=== PATIENT | male | born 1935 | race Two or more races ===

== ENCOUNTER 2018-12-16 09:06 | Inpatient (IN) | payer MEDICARE, OTHER ==
[~2018-12-16] VITALS: Ht 175.3 cm; Wt 68.1 kg
[~2018-12-16 09:06] MED LIST: ASPI-1182 PO; CARV6.2579 PO; CLOP75TA3 PO; GEMF600T5 PO; ISOS60TA4 PO; LEVO100 PO; ROSU10TA22 PO; [UNRECOGNIZED DRUG - CODE] PO
[2018-12-16] MEDS ORDERED: OMEP20 PO (09:17)
[2018-12-16] MEDS ORDERED: LOSA25TA2 PO (09:17)
[2018-12-16 09:20] LABS: GLUCOSE,POINT OF CARE 110 MG/DL (70-110)
[2018-12-16] MEDS ORDERED: SODIUM CHLORIDE 0.9% 1,000 ML IV ONE (10:15)
[2018-12-16 10:38] LABS: BASOPHILS % (AUTO) 0.6 % (0.0-2.0); EOSINOPHILS % (AUTO) 3.2 % (1.0-6.0); HEMATOCRIT 39.6 % (41-53); HEMOGLOBIN 13.5 g/dL (13.5-17.5); LYMPHOCYTES # (AUTO) 1.6 K/uL (1.0-4.8); LYMPHOCYTES % (AUTO) 12.7 % (22.0-44.0); MEAN CORPUSCULAR HEMOGLOBIN 31.3 pg (26.0-34.0); MEAN CORPUSCULAR HGB CONC 34.2 G/dL (31.0-37.0); MEAN CORPUSCULAR VOLUME 92 fL (80-100); MONOCYTES # (AUTO) 0.9 K/uL (0.1-1.0); MONOCYTES % (AUTO) 7.4 % (2.0-9.0); NEUTROPHILS # (AUTO) 9.3 K/uL (1.8-7.7); NEUTROPHILS % (AUTO) 76.1 % (40.0-70.0); PLATELET COUNT (AUTO) 363 K/uL (150-450); RED BLOOD CELL COUNT(AUTO) 4.32 MIL/uL (4.50-5.90); RED CELL DISTRIBUTION WIDTH 14.1 % (11.5-14.5)
[2018-12-16 10:49] LABS: CALCIUM, TOTAL 9.5 mg/dL (8.8-10.5); CREATININE 1.95 mg/dL (0.60-1.30); POTASSIUM 4.3 mmol/L (3.5-5.1)
[2018-12-16 10:51] LABS: PROTHROMBIN TIME 10.6 SEC (9.4-11.6)
[2018-12-16 10:55] LABS: ALBUMIN 2.8 g/dL (3.4-5.0); BILIRUBIN,TOTAL 0.5 mg/dL (0.1-1.0); TOTAL PROTEIN, SERUM 8.2 g/dL (6.4-8.2)
[2018-12-16 10:57] LABS: LACTIC ACID 1.7 mmol/L (0.4-2.0)
[2018-12-16 11:22] LABS: APPEARANCE,URINE CLEAR (CLEAR); BILIRUBIN,URINE NEGATIVE (NEGATIVE); GLUCOSE, URINE (UA) NEGATIVE (NEGATIVE); KETONES,URINE NEGATIVE (NEGATIVE); LEUKOCYTE ESTERASE ,URINE NEGATIVE (NEGATIVE); NITRATE,URINE NEGATIVE (NEGATIVE); OCCULT BLOOD,URINE NEGATIVE (NEGATIVE); PH,URINE 6.5 (5.0-8.0); PROTEIN,URINE POS 1+ (NEGATIVE); UROBILINOGEN,URINE 0.2 mg/dL (<=1.0)
[2018-12-16 11:36] LABS: BACTERIA,URINE None Seen /HPF (None Seen); RBC,URINE None Seen /HPF (0-2); SQUAMOUS EPITHELIAL CELL,UR Rare /LPF (None Seen); WBC,URINE None Seen /HPF (0-5)
[2018-12-16] MEDS ORDERED: 0.9% SODIUM CHLORIDE 10 ML SYRINGE IVP PRN (12:30)
[2018-12-16] MEDS ORDERED: AZITHROMYCIN 500 MG/NS 250 ML IV ONE (12:30)
[2018-12-16] MEDS ORDERED: CefTRIAXone 1 GM/DEXTROSE 50 ML IV ONE (12:30)
[2018-12-16] MEDS ORDERED: ONDANSETRON HCL 4 MG/2 ML VIAL IVP PRN (12:30)
[2018-12-16] MEDS ORDERED: ACETAMINOPHEN 325 MG TABLET PO PRN ×2 (12:30→13:00)
[2018-12-16] MEDS ORDERED: LEVO75 PO (12:44)
[2018-12-16] MEDS ORDERED: BISACODYL 10 MG RECTAL RECTAL SUPPOSITORY PR PRN (13:00)
[2018-12-16 16:37] VITALS: BP 116/68
[2018-12-16 20:04] VITALS: BP 100/58
[2018-12-16] MEDS: DOCUSATE SODIUM 100 MG CAPSULE PO SCH (20:09)
[2018-12-16] MEDS: ATORVASTATIN CALCIUM 20 MG TABLET PO SCH (20:09)
[2018-12-16] MEDS: CARVEDILOL 6.25 MG TABLET PO SCH (20:09)
[2018-12-16] MEDS ORDERED: INFLUENZA VIRUS VACCINE QVS 2019-20 (3YR+)/PF 60 MCG/0.5 ML SYRINGE IM ONE (20:15)
[2018-12-16] MEDS ORDERED: PNEUMOCOCCAL VACCINE POLYVALENT 0.5 ML VIAL [PPSV23] IM ONE (20:15)
[2018-12-16 23:49] VITALS: BP 108/60
[2018-12-17 05:18] VITALS: BP 109/58
[2018-12-17 05:42] LABS: GLUCOMETER DEV NAME(LOC) 5N.2; GLUCOSE,POINT OF CARE 108 MG/DL (70-110)
[2018-12-17 07:59] VITALS: BP 101/48
[2018-12-17] MEDS: CARVEDILOL 6.25 MG TABLET PO SCH ×2 (09:00→20:26)
[2018-12-17] MEDS: DOCUSATE SODIUM 100 MG CAPSULE PO SCH ×2 (09:06→20:26)
[2018-12-17] MEDS: CLOPIDOGREL BISULFATE 75 MG TABLET PO SCH (09:07)
[2018-12-17] MEDS: FAMOTIDINE 20 MG TABLET PO SCH (09:09)
[2018-12-17] MEDS: ASPIRIN 81 MG CHEWABLE TABLET PO SCH (09:09)
[2018-12-17 09:21] VITALS: BP 97/51
[2018-12-17 11:42] LABS: BASOPHILS % (AUTO) 0.6 % (0.0-2.0); EOSINOPHILS % (AUTO) 4.1 % (1.0-6.0); HEMATOCRIT 33.8 % (41-53); HEMOGLOBIN 11.7 g/dL (13.5-17.5); LYMPHOCYTES # (AUTO) 1.1 K/uL (1.0-4.8); MEAN CORPUSCULAR HEMOGLOBIN 31.9 pg (26.0-34.0); MEAN CORPUSCULAR HGB CONC 34.7 G/dL (31.0-37.0); MEAN CORPUSCULAR VOLUME 92 fL (80-100); MONOCYTES # (AUTO) 0.8 K/uL (0.1-1.0); MONOCYTES % (AUTO) 8.2 % (2.0-9.0); NEUTROPHILS % (AUTO) 75.1 % (40.0-70.0); PLATELET COUNT (AUTO) 305 K/uL (150-450); RED BLOOD CELL COUNT(AUTO) 3.67 MIL/uL (4.50-5.90); RED CELL DISTRIBUTION WIDTH 14.1 % (11.5-14.5)
[2018-12-17 11:50] LABS: CALCIUM, TOTAL 8.7 mg/dL (8.8-10.5); CREATININE 1.62 mg/dL (0.60-1.30); POTASSIUM 4.5 mmol/L (3.5-5.1)
[2018-12-17 15:34] VITALS: BP 100/41
[2018-12-17 19:22] VITALS: BP 119/89
[2018-12-17] MEDS: ATORVASTATIN CALCIUM 20 MG TABLET PO SCH (20:26)
[2018-12-17 23:32] VITALS: BP 93/52
[2018-12-18 05:16] VITALS: BP 101/55
[2018-12-18 06:49] LABS: BASOPHILS % (AUTO) 0.6 % (0.0-2.0); EOSINOPHILS % (AUTO) 4.3 % (1.0-6.0); HEMATOCRIT 31.8 % (41-53); HEMOGLOBIN 11.2 g/dL (13.5-17.5); LYMPHOCYTES # (AUTO) 1.3 K/uL (1.0-4.8); LYMPHOCYTES % (AUTO) 15.1 % (22.0-44.0); MEAN CORPUSCULAR HEMOGLOBIN 32.1 pg (26.0-34.0); MEAN CORPUSCULAR HGB CONC 35.3 G/dL (31.0-37.0); MEAN CORPUSCULAR VOLUME 91 fL (80-100); MONOCYTES # (AUTO) 0.8 K/uL (0.1-1.0); MONOCYTES % (AUTO) 9.2 % (2.0-9.0); NEUTROPHILS # (AUTO) 6.2 K/uL (1.8-7.7); NEUTROPHILS % (AUTO) 70.8 % (40.0-70.0); PLATELET COUNT (AUTO) 274 K/uL (150-450); RED BLOOD CELL COUNT(AUTO) 3.49 MIL/uL (4.50-5.90); RED CELL DISTRIBUTION WIDTH 14.2 % (11.5-14.5)
[2018-12-18 06:58] LABS: CALCIUM, TOTAL 8.3 mg/dL (8.8-10.5); CREATININE 1.63 mg/dL (0.60-1.30); POTASSIUM 3.9 mmol/L (3.5-5.1)
[2018-12-18 08:27] VITALS: BP 97/59
[2018-12-18] MEDS: CARVEDILOL 6.25 MG TABLET PO SCH (08:37)
[2018-12-18] MEDS: DOCUSATE SODIUM 100 MG CAPSULE PO SCH ×2 (08:41→20:11)
[2018-12-18] MEDS: CLOPIDOGREL BISULFATE 75 MG TABLET PO SCH (08:41)
[2018-12-18] MEDS: FAMOTIDINE 20 MG TABLET PO SCH (08:41)
[2018-12-18] MEDS: ASPIRIN 81 MG CHEWABLE TABLET PO SCH (08:42)
[2018-12-18 11:45] VITALS: BP 106/62
[2018-12-18] MEDS ORDERED: SODIUM CHLORIDE 0.9% 100 ML ONE (12:06)
[2018-12-18] MEDS: AZITHROMYCIN 500 MG/NS 250 ML IV SCH (12:11)
[2018-12-18] MEDS: CefTRIAXone 1 GM/DEXTROSE 50 ML IV SCH (12:27)
[2018-12-18 16:54] VITALS: BP 112/64
[2018-12-18] MEDS: ATORVASTATIN CALCIUM 20 MG TABLET PO SCH (20:11)
[2018-12-18 20:17] VITALS: BP 106/60
[2018-12-18] MEDS: CARVEDILOL 3.125 MG TABLET PO SCH (21:00)
[2018-12-19 00:12] VITALS: BP 104/50
[2018-12-19 04:48] VITALS: BP 101/52
[2018-12-19 07:13] VITALS: BP 98/56
[2018-12-19] MEDS: CLOPIDOGREL BISULFATE 75 MG TABLET PO SCH (08:12)
[2018-12-19] MEDS: DOCUSATE SODIUM 100 MG CAPSULE PO SCH (08:13)
[2018-12-19] MEDS: ASPIRIN 81 MG CHEWABLE TABLET PO SCH (08:13)
[2018-12-19] MEDS: FAMOTIDINE 20 MG TABLET PO SCH (08:14)
[2018-12-19] MEDS: CARVEDILOL 3.125 MG TABLET PO SCH (08:15)
[2018-12-19 11:15] VITALS: BP 101/52
[2018-12-19] MEDS: CefTRIAXone 1 GM/DEXTROSE 50 ML IV SCH (11:22)
[2018-12-19] MEDS: AZITHROMYCIN 500 MG/NS 250 ML IV SCH (12:13)
[2018-12-19] MEDS ORDERED: AMOX1TAB16 PO (13:03)
== END 2018-12-19 14:15 | disposition home or self-care (01) | DRG 193 ==
LOC: EMS 09:07 → 5S 14:51
PROVIDERS: ADMIT Internal Medicine; ATTEND Internal Medicine
PROC: 3E02340 Introduction of Influenza Vaccine into Muscle, Percutaneous Approach (ICD-10-PCS; principal; 2018-12-16)
PROC: 3E0234Z Introduction of Serum, Toxoid and Vaccine into Muscle, Percutaneous Approach (ICD-10-PCS; 2018-12-16)
DX: J18.9 Pneumonia, unspecified organism (principal); R65.11 Systemic inflammatory response syndrome (SIRS) of non-infectious origin with acute organ dysfunction; I13.0 Hypertensive heart and chronic kidney disease with heart failure and stage 1 through stage 4 chronic kidney disease, or unspecified chronic kidney disease; E87.1 Hypo-osmolality and hyponatremia; I50.20 Unspecified systolic (congestive) heart failure; E44.0 Moderate protein-calorie malnutrition; I25.5 Ischemic cardiomyopathy; E03.9 Hypothyroidism, unspecified; E11.22 Type 2 diabetes mellitus with diabetic chronic kidney disease; R00.0 Tachycardia, unspecified; E78.00 Pure hypercholesterolemia, unspecified; I25.10 Atherosclerotic heart disease of native coronary artery without angina pectoris; N18.3 Chronic kidney disease, stage 3 (moderate); R13.10 Dysphagia, unspecified; Z86.73 Personal history of transient ischemic attack (TIA), and cerebral infarction without residual deficits; Z95.810 Presence of automatic (implantable) cardiac defibrillator; Z23 Encounter for immunization; Z79.899 Other long term (current) drug therapy; Z79.82 Long term (current) use of aspirin; Z95.5 Presence of coronary angioplasty implant and graft
CPT/HCPCS: 70450; 83605; 87040; 90686; 90732; 92526; 92610; 93005; 93306; 97116; 97162; 97530; J0456; J0696; J7050

== ENCOUNTER 2018-12-23 15:43 | Inpatient (IN) | payer MEDICARE ==
[~2018-12-23] VITALS: Ht 167.6 cm; Wt 66.7 kg
[~2018-12-23 15:43] MED LIST changes: +AMOX1TAB16 PO; -CARV6.2579 PO; -GEMF600T5 PO; -ISOS60TA4 PO; -LEVO100 PO; -ROSU10TA22 PO; -[UNRECOGNIZED DRUG - CODE] PO
[2018-12-23 16:11] LABS: GLUCOSE,POINT OF CARE 145 MG/DL (70-110)
[2018-12-23] MEDS ORDERED: 0.9% SODIUM CHLORIDE 10 ML SYRINGE IVP PRN (17:00)
[2018-12-23] MEDS ORDERED: SODIUM CHLORIDE 0.9% 500 ML IV ONE (17:00)
[2018-12-23] MEDS ORDERED: VANCOMYCIN HCL 1.25 GM in DEXTROSE 5%-WATER 250 ML IV ONE (17:15)
[2018-12-23] MEDS ORDERED: PIPERACILLIN/TAZO 3.375 GM/D5W 50 ML IV ONE (17:15)
[2018-12-23 17:31] LABS: EOSINOPHILS % (AUTO) 5.7 % (1.0-6.0); HEMATOCRIT 35.6 % (41-53); LYMPHOCYTES # (AUTO) 1.2 K/uL (1.0-4.8); LYMPHOCYTES % (AUTO) 11.4 % (22.0-44.0); MEAN CORPUSCULAR HEMOGLOBIN 31.2 pg (26.0-34.0); MEAN CORPUSCULAR HGB CONC 33.8 G/dL (31.0-37.0); MEAN CORPUSCULAR VOLUME 92 fL (80-100); MONOCYTES # (AUTO) 0.8 K/uL (0.1-1.0); MONOCYTES % (AUTO) 8.1 % (2.0-9.0); NEUTROPHILS # (AUTO) 7.7 K/uL (1.8-7.7); NEUTROPHILS % (AUTO) 73.8 % (40.0-70.0); PLATELET COUNT (AUTO) 310 K/uL (150-450); RED BLOOD CELL COUNT(AUTO) 3.86 MIL/uL (4.50-5.90); RED CELL DISTRIBUTION WIDTH 14.1 % (11.5-14.5)
[2018-12-23 17:40] LABS: CALCIUM, TOTAL 8.8 mg/dL (8.8-10.5); CREATININE 1.77 mg/dL (0.60-1.30); POTASSIUM 4.3 mmol/L (3.5-5.1)
[2018-12-23 17:48] LABS: LACTIC ACID 1.9 mmol/L (0.4-2.0)
[2018-12-23 17:55] LABS: ALBUMIN 2.4 g/dL (3.4-5.0); BILIRUBIN,TOTAL 0.4 mg/dL (0.1-1.0); THYROID STIMULATING HORMONE 11.02 uIU/mL (0.36-3.74); TOTAL PROTEIN, SERUM 7.1 g/dL (6.4-8.2)
[2018-12-23 18:10] LABS: D-DIMER 4.39 mg/L FEU (0.00-0.50); INR 1.1 (0.9-1.1); PROTHROMBIN TIME 10.8 SEC (9.4-11.6)
[2018-12-23 18:24] LABS: INFLUENZA TYPE A NEGATIVE FOR TYPE A (NEGATIVE); INFLUENZA TYPE B NEGATIVE FOR TYPE B (NEGATIVE)
[2018-12-23 18:45] LABS: FREE T4 (FREE THYROXINE) 1.04 ng/dL (0.76-1.46)
[2018-12-23] MEDS ORDERED: IOVERSOL 320 MG/ML 100 ML VIAL ONE (19:14)
[2018-12-23] MEDS ORDERED: SODIUM CHLORIDE 0.9% 0 ML ONE (19:14)
[2018-12-23] MEDS ORDERED: SODIUM CHLORIDE 0.9% 0 ML IV ONE (22:03)
[2018-12-23 22:48] VITALS: BP 114/64
[2018-12-23] MEDS ORDERED: ALBUTEROL SULFATE 2.5 MG/0.5 ML NEB SOLUTION NEB PRN (23:45)
[2018-12-23] MEDS ORDERED: IPRATROPIUM BROMIDE 0.5 MG/2.5 ML NEB SOLUTION NEB PRN (23:45)
[2018-12-23] MEDS ORDERED: MAGNESIUM HYDROXIDE SUSPENSION 30 ML UDCUP PO PRN (23:45)
[2018-12-23] MEDS ORDERED: MORPHINE SULFATE 2 MG/ML SYRINGE IVP PRN (23:45)
[2018-12-23] MEDS ORDERED: HYDROCODONE/ACETAMINOPHEN 5-325 MG TABLET PO PRN (23:45)
[2018-12-23] MEDS ORDERED: ACETAMINOPHEN 325 MG TABLET PO PRN (23:45)
[2018-12-23] MEDS ORDERED: ONDANSETRON HCL 4 MG/2 ML VIAL IVP PRN (23:45)
[2018-12-23] MEDS ORDERED: ZOLPIDEM TARTRATE 5 MG TABLET PO PRN (23:45)
[2018-12-23] MEDS ORDERED: BISACODYL 10 MG RECTAL RECTAL SUPPOSITORY PR PRN (23:45)
[2018-12-24] MEDS ORDERED: PIPERACILLIN SODIUM/TAZOBACTAM 2.25 GM in DEXTROSE 5%-WATER 50 ML IV SCH ×2
[2018-12-24] MEDS: PIPERACILLIN/TAZO 3.375 GM/D5W 50 ML IV SCH ×4 (00:46→18:14)
[2018-12-24] MEDS: SODIUM CHLORIDE 0.9% 1,000 ML IV SCH ×2 (00:46→14:24)
[2018-12-24] MEDS: HEPARIN SODIUM,PORCINE 5,000 UNITS/ML VIAL SQ SCH ×3 (00:46→16:00)
[2018-12-24 04:12] VITALS: BP 103/67
[2018-12-24 07:26] VITALS: BP 98/52
[2018-12-24] MEDS ORDERED: VANCOMYCIN HCL 750 MG in DEXTROSE 5%-WATER 250 ML IV SCH (08:00)
[2018-12-24] MEDS: ASPIRIN 81 MG EC TABLET PO SCH (10:19)
[2018-12-24] MEDS: DOCUSATE SODIUM 100 MG CAPSULE PO SCH ×2 (10:19→20:45)
[2018-12-24] MEDS: CLOPIDOGREL BISULFATE 75 MG TABLET PO SCH (10:19)
[2018-12-24 12:50] LABS: BASOPHILS % (AUTO) 0.6 % (0.0-2.0); EOSINOPHILS % (AUTO) 7.6 % (1.0-6.0); HEMOGLOBIN 11.7 g/dL (13.5-17.5); LYMPHOCYTES % (AUTO) 10.1 % (22.0-44.0); MEAN CORPUSCULAR HEMOGLOBIN 31.4 pg (26.0-34.0); MEAN CORPUSCULAR HGB CONC 34.4 G/dL (31.0-37.0); MEAN CORPUSCULAR VOLUME 92 fL (80-100); MONOCYTES # (AUTO) 0.7 K/uL (0.1-1.0); MONOCYTES % (AUTO) 7.7 % (2.0-9.0); PLATELET COUNT (AUTO) 293 K/uL (150-450); RED BLOOD CELL COUNT(AUTO) 3.72 MIL/uL (4.50-5.90); RED CELL DISTRIBUTION WIDTH 14.3 % (11.5-14.5)
[2018-12-24 13:03] LABS: CALCIUM, TOTAL 8.4 mg/dL (8.8-10.5); CREATININE 1.62 mg/dL (0.60-1.30); POTASSIUM 3.7 mmol/L (3.5-5.1)
[2018-12-24 13:12] LABS: BILIRUBIN,TOTAL 0.5 mg/dL (0.1-1.0); TOTAL PROTEIN, SERUM 6.2 g/dL (6.4-8.2)
[2018-12-24 16:38] VITALS: BP 101/60
[2018-12-24 20:11] VITALS: BP 124/67
[2018-12-24 21:46] LABS: GLUCOMETER DEV NAME(LOC) 5S.2A; GLUCOSE,POINT OF CARE 111 MG/DL (70-110)
[2018-12-25] MEDS: PIPERACILLIN/TAZO 3.375 GM/D5W 50 ML IV SCH ×3 (00:02→12:00)
[2018-12-25] MEDS: HEPARIN SODIUM,PORCINE 5,000 UNITS/ML VIAL SQ SCH ×2 (00:03→09:45)
[2018-12-25 00:16] VITALS: BP 100/57
[2018-12-25 04:49] VITALS: BP 109/65
[2018-12-25] MEDS ORDERED: LEVOTHYROXINE SODIUM 25 MCG TABLET PO SCH (06:30)
[2018-12-25 07:25] VITALS: BP 92/53
[2018-12-25] MEDS ORDERED: DIGOXIN 125 MCG TABLET PO SCH (09:00)
[2018-12-25] MEDS: DOCUSATE SODIUM 100 MG CAPSULE PO SCH (09:45)
[2018-12-25] MEDS: CLOPIDOGREL BISULFATE 75 MG TABLET PO SCH (09:46)
[2018-12-25] MEDS: ASPIRIN 81 MG EC TABLET PO SCH (09:46)
[2018-12-25 11:27] VITALS: BP 110/64
[2018-12-25] MEDS ORDERED: LEVO25TA9 PO (13:32)
== END 2018-12-25 14:26 | disposition home or self-care (01) | DRG 871 ==
LOC: EMS 15:47 → 5S 21:42
PROVIDERS: ADMIT Hospitalist; ATTEND Hospitalist
DX: A41.9 Sepsis, unspecified organism (principal); E43 Unspecified severe protein-calorie malnutrition; J18.9 Pneumonia, unspecified organism; E87.1 Hypo-osmolality and hyponatremia; I13.0 Hypertensive heart and chronic kidney disease with heart failure and stage 1 through stage 4 chronic kidney disease, or unspecified chronic kidney disease; I50.20 Unspecified systolic (congestive) heart failure; N17.9 Acute kidney failure, unspecified; I95.9 Hypotension, unspecified; E03.9 Hypothyroidism, unspecified; E78.5 Hyperlipidemia, unspecified; E86.0 Dehydration; E11.22 Type 2 diabetes mellitus with diabetic chronic kidney disease; E78.00 Pure hypercholesterolemia, unspecified; I25.10 Atherosclerotic heart disease of native coronary artery without angina pectoris; I25.5 Ischemic cardiomyopathy; I48.0 Paroxysmal atrial fibrillation; N18.3 Chronic kidney disease, stage 3 (moderate); Z79.02 Long term (current) use of antithrombotics/antiplatelets; Z95.5 Presence of coronary angioplasty implant and graft; Z95.810 Presence of automatic (implantable) cardiac defibrillator; Z79.899 Other long term (current) drug therapy; Z79.82 Long term (current) use of aspirin; Z68.23 Body mass index [BMI] 23.0-23.9, adult
CPT/HCPCS: 83605; 84439; 84443; 85379; 87040; 87804; 93005; 99291; J1644; J2543; J3370; J7030; J7050; J7060

== ENCOUNTER 2019-02-06 09:08 | Inpatient (IN) | payer MEDICARE ==
[~2019-02-06] VITALS: Ht 180.3 cm; Wt 61.0 kg
[~2019-02-06 09:08] MED LIST changes: +LEVO25TA9 PO
[2019-02-06] MEDS ORDERED: 0.9% SODIUM CHLORIDE 10 ML SYRINGE IVP PRN ×2 (10:45→14:15)
[2019-02-06 11:18] LABS: BASOPHILS % (AUTO) 0.9 % (0.0-2.0); EOSINOPHILS % (AUTO) 6.5 % (1.0-6.0); HEMATOCRIT 43.3 % (41-53); HEMOGLOBIN 14.5 g/dL (13.5-17.5); LYMPHOCYTES # (AUTO) 1.9 K/uL (1.0-4.8); LYMPHOCYTES % (AUTO) 14.6 % (22.0-44.0); MEAN CORPUSCULAR HEMOGLOBIN 31.3 pg (26.0-34.0); MEAN CORPUSCULAR HGB CONC 33.5 G/dL (31.0-37.0); MEAN CORPUSCULAR VOLUME 94 fL (80-100); MONOCYTES # (AUTO) 1.2 K/uL (0.1-1.0); MONOCYTES % (AUTO) 9.2 % (2.0-9.0); NEUTROPHILS # (AUTO) 8.8 K/uL (1.8-7.7); NEUTROPHILS % (AUTO) 68.8 % (40.0-70.0); PLATELET COUNT (AUTO) 594 K/uL (150-450); RED BLOOD CELL COUNT(AUTO) 4.63 MIL/uL (4.50-5.90); RED CELL DISTRIBUTION WIDTH 15.3 % (11.5-14.5)
[2019-02-06 11:39] LABS: INFLUENZA TYPE A NEGATIVE FOR TYPE A (NEGATIVE); INFLUENZA TYPE B NEGATIVE FOR TYPE B (NEGATIVE)
[2019-02-06 11:40] LABS: ANION GAP 12 mmol/L (8-16); CALCIUM, TOTAL 9.5 mg/dL (8.8-10.5); CARBON DIOXIDE 26 mmol/L (22-29); CHLORIDE 91 mmol/L (98-107); CREATININE 1.44 mg/dL (0.60-1.30); GLOMERULAR FILTR. RATE CALC 47 mL/min (>60); GLUCOSE,RANDOM 101 mg/dL (70-110); POTASSIUM 4.6 mmol/L (3.5-5.1); SODIUM SERUM 129 mmol/L (136-145); UREA NITROGEN, BLOOD 18 mg/dL (7-18)
[2019-02-06 11:51] LABS: ALANINE AMINOTRANSFERASE 25 U/L (12-78); ALBUMIN 2.4 g/dL (3.4-5.0); ALKALINE PHOSPHATASE 176 U/L (46-116); ASPARTATE AMINOTRANSFERASE 31 U/L (15-37); BILIRUBIN,TOTAL 0.5 mg/dL (0.1-1.0); CREATINE KINASE, TOTAL ONLY 12 U/L (39-308)
[2019-02-06 11:52] LABS: INR 1.1 (0.9-1.1)
[2019-02-06 11:59] LABS: B-TYPE NATRIURETIC PEPTIDE 317 pg/mL (0-100)
[2019-02-06] MEDS ORDERED: SODIUM CHLORIDE 0.9% 1,850 ML IV ONE (12:06)
[2019-02-06] MEDS ORDERED: PIPERACILLIN/TAZO 3.375 GM/D5W 50 ML IV ONE (12:15)
[2019-02-06] MEDS ORDERED: ONDANSETRON HCL 4 MG/2 ML VIAL IVP PRN ×2 (13:00→14:15)
[2019-02-06] MEDS ORDERED: ACETAMINOPHEN 325 MG TABLET PO PRN (13:00)
[2019-02-06] MEDS ORDERED: *CLINICAL-CEFEPIME DOSING CLINICAL ONE (13:45)
[2019-02-06] MEDS ORDERED: VANCOMYCIN HCL 1 GM/D5% WATER 200 ML IV ONE (14:00)
[2019-02-06] MEDS ORDERED: IPRATROPIUM BROMIDE 0.5 MG/2.5 ML NEB SOLUTION NEB PRN (14:15)
[2019-02-06] MEDS ORDERED: BISACODYL 10 MG RECTAL RECTAL SUPPOSITORY PR PRN (14:15)
[2019-02-06] MEDS ORDERED: DOCUSATE SODIUM 100 MG CAPSULE PO PRN (14:15)
[2019-02-06] MEDS ORDERED: ALBUTEROL SULFATE 2.5 MG/0.5 ML NEB SOLUTION NEB PRN (14:15)
[2019-02-06] MEDS ORDERED: MAGNESIUM HYDROXIDE SUSPENSION 30 ML UDCUP PO PRN (14:15)
[2019-02-06 16:45] LABS: APPEARANCE,URINE CLEAR (CLEAR); BILIRUBIN,URINE NEGATIVE (NEGATIVE); GLUCOSE, URINE (UA) NEGATIVE (NEGATIVE); KETONES,URINE NEGATIVE (NEGATIVE); LEUKOCYTE ESTERASE ,URINE NEGATIVE (NEGATIVE); NITRATE,URINE NEGATIVE (NEGATIVE); OCCULT BLOOD,URINE NEGATIVE (NEGATIVE); PH,URINE 6.5 (5.0-8.0); PROTEIN,URINE TRACE (NEGATIVE); UROBILINOGEN,URINE 0.2 mg/dL (<=1.0)
[2019-02-06 16:51] LABS: BACTERIA,URINE None Seen /HPF (None Seen); RBC,URINE None Seen /HPF (0-2); SQUAMOUS EPITHELIAL CELL,UR Rare /LPF (None Seen); WBC,URINE 0-2 /HPF (0-5)
[2019-02-06 17:17] LABS: CALCIUM, TOTAL 8.2 mg/dL (8.8-10.5); CREATININE 1.26 mg/dL (0.60-1.30); POTASSIUM 3.9 mmol/L (3.5-5.1)
[2019-02-06] MEDS: CEFEPIME HCL 2 GM in DEXTROSE 5%-WATER 50 ML IV SCH (18:21)
[2019-02-06 18:50] VITALS: BP 102/62
[2019-02-06 19:12] LABS: GLUCOMETER DEV NAME(LOC) AHU.; GLUCOSE,POINT OF CARE 100 MG/DL (70-110)
[2019-02-06] MEDS: HEPARIN SODIUM,PORCINE 5,000 UNITS/ML VIAL SQ SCH (20:14)
[2019-02-07 05:14] VITALS: BP 108/56
[2019-02-07] MEDS ORDERED: LEVOTHYROXINE SODIUM 25 MCG TABLET PO SCH (06:30)
[2019-02-07 07:13] LABS: HIV 1-2 SCREEN 4TH GEN W/RFLX Non Reactive (Non Reactive)
[2019-02-07 07:30] VITALS: BP 111/60
[2019-02-07 08:35] LABS: BASOPHILS % (AUTO) 0.9 % (0.0-2.0); EOSINOPHILS % (AUTO) 5.4 % (1.0-6.0); HEMATOCRIT 35.2 % (41-53); HEMOGLOBIN 12.1 g/dL (13.5-17.5); LYMPHOCYTES # (AUTO) 1.1 K/uL (1.0-4.8); LYMPHOCYTES % (AUTO) 9.3 % (22.0-44.0); MEAN CORPUSCULAR HEMOGLOBIN 31.4 pg (26.0-34.0); MEAN CORPUSCULAR HGB CONC 34.3 G/dL (31.0-37.0); MEAN CORPUSCULAR VOLUME 92 fL (80-100); MONOCYTES # (AUTO) 1.3 K/uL (0.1-1.0); MONOCYTES % (AUTO) 10.5 % (2.0-9.0); NEUTROPHILS % (AUTO) 73.9 % (40.0-70.0); PLATELET COUNT (AUTO) 507 K/uL (150-450); RED BLOOD CELL COUNT(AUTO) 3.84 MIL/uL (4.50-5.90); RED CELL DISTRIBUTION WIDTH 15.7 % (11.5-14.5)
[2019-02-07 09:05] LABS: ALBUMIN 1.8 g/dL (3.4-5.0); BILIRUBIN,TOTAL 0.4 mg/dL (0.1-1.0); CALCIUM, TOTAL 8.2 mg/dL (8.8-10.5); CHOL/HDL RATIO 4.6 (4.2-7.3); CREATININE 1.36 mg/dL (0.60-1.30); POTASSIUM 3.9 mmol/L (3.5-5.1); THYROID STIMULATING HORMONE 19.54 uIU/mL (0.36-3.74); TOTAL PROTEIN, SERUM 6.1 g/dL (6.4-8.2)
[2019-02-07] MEDS ORDERED: SODIUM CHLORIDE 0.9% 250 ML IV ONE (09:32)
[2019-02-07] MEDS: CLOPIDOGREL BISULFATE 75 MG TABLET PO SCH (09:33)
[2019-02-07] MEDS: ASPIRIN 81 MG EC TABLET PO SCH (09:33)
[2019-02-07] MEDS: PANTOPRAZOLE SODIUM 40 MG DR TABLET PO SCH (09:33)
[2019-02-07] MEDS: HEPARIN SODIUM,PORCINE 5,000 UNITS/ML VIAL SQ SCH ×2 (09:34→21:39)
[2019-02-07] MEDS: VANCOMYCIN HCL 1 GM/D5% WATER 200 ML IV SCH (09:34)
[2019-02-07 11:24] VITALS: BP 107/50
[2019-02-07] MEDS: CEFEPIME HCL 2 GM in DEXTROSE 5%-WATER 50 ML IV SCH (18:18)
[2019-02-07 19:03] LABS: CALCIUM, TOTAL 8.8 mg/dL (8.8-10.5); CREATININE 1.45 mg/dL (0.60-1.30); POTASSIUM 4.6 mmol/L (3.5-5.1)
[2019-02-07 20:32] VITALS: BP 116/48
[2019-02-07 21:51] LABS: CALCIUM, TOTAL 8.5 mg/dL (8.8-10.5); CREATININE 1.45 mg/dL (0.60-1.30); POTASSIUM 4.4 mmol/L (3.5-5.1)
[2019-02-08] VITALS (7 sets, daily range): BP systolic 90–102; BP diastolic 50–58
[2019-02-08] MEDS: LEVOTHYROXINE SODIUM 25 MCG TABLET PO SCH (06:01)
[2019-02-08 06:41] LABS: BASOPHILS % (AUTO) 1.2 % (0.0-2.0); HEMATOCRIT 32.9 % (41-53); HEMOGLOBIN 11.4 g/dL (13.5-17.5); LYMPHOCYTES # (AUTO) 1.1 K/uL (1.0-4.8); LYMPHOCYTES % (AUTO) 11.1 % (22.0-44.0); MEAN CORPUSCULAR HEMOGLOBIN 31.6 pg (26.0-34.0); MEAN CORPUSCULAR HGB CONC 34.5 G/dL (31.0-37.0); MEAN CORPUSCULAR VOLUME 92 fL (80-100); MONOCYTES # (AUTO) 1.1 K/uL (0.1-1.0); NEUTROPHILS # (AUTO) 7.1 K/uL (1.8-7.7); NEUTROPHILS % (AUTO) 69.7 % (40.0-70.0); PLATELET COUNT (AUTO) 456 K/uL (150-450); RED BLOOD CELL COUNT(AUTO) 3.59 MIL/uL (4.50-5.90); RED CELL DISTRIBUTION WIDTH 15.4 % (11.5-14.5)
[2019-02-08 06:54] LABS: CALCIUM, TOTAL 8.3 mg/dL (8.8-10.5); CREATININE 1.46 mg/dL (0.60-1.30); POTASSIUM 3.9 mmol/L (3.5-5.1)
[2019-02-08] MEDS: CLOPIDOGREL BISULFATE 75 MG TABLET PO SCH (08:12)
[2019-02-08] MEDS: HEPARIN SODIUM,PORCINE 5,000 UNITS/ML VIAL SQ SCH ×2 (08:13→22:20)
[2019-02-08] MEDS: ASPIRIN 81 MG EC TABLET PO SCH (08:13)
[2019-02-08] MEDS: PANTOPRAZOLE SODIUM 40 MG DR TABLET PO SCH (08:13)
[2019-02-08] MEDS: VANCOMYCIN HCL 1 GM/D5% WATER 200 ML IV SCH (08:45)
[2019-02-08 12:41] LABS: GLUCOMETER DEV NAME(LOC) 5S.1; GLUCOSE,POINT OF CARE 128 MG/DL (70-110)
[2019-02-08] MEDS: CEFEPIME HCL 2 GM in DEXTROSE 5%-WATER 50 ML IV SCH (16:55)
[2019-02-08 17:06] LABS: CALCIUM, TOTAL 8.5 mg/dL (8.8-10.5); CREATININE 1.47 mg/dL (0.60-1.30); POTASSIUM 4.5 mmol/L (3.5-5.1)
[2019-02-08 18:08] LABS: QUANTIFERON+, Nil Value 0.05 IU/mL; QUANTIFERON+,Mitogen Value 1.79 IU/mL; QUANTIFERON+,TB1 Antigen Value 0.07 IU/mL; QUANTIFERON, TB GOLD PLUS Negative (Negative)
[2019-02-09 04:59] VITALS: BP 91/53
[2019-02-09] MEDS: LEVOTHYROXINE SODIUM 25 MCG TABLET PO SCH (06:20)
[2019-02-09 06:23] LABS: BASOPHILS % (AUTO) 1.4 % (0.0-2.0); EOSINOPHILS % (AUTO) 6.1 % (1.0-6.0); HEMATOCRIT 33.3 % (41-53); HEMOGLOBIN 11.5 g/dL (13.5-17.5); LYMPHOCYTES # (AUTO) 1.5 K/uL (1.0-4.8); LYMPHOCYTES % (AUTO) 12.6 % (22.0-44.0); MEAN CORPUSCULAR HEMOGLOBIN 31.4 pg (26.0-34.0); MEAN CORPUSCULAR HGB CONC 34.4 G/dL (31.0-37.0); MEAN CORPUSCULAR VOLUME 91 fL (80-100); MONOCYTES # (AUTO) 1.4 K/uL (0.1-1.0); MONOCYTES % (AUTO) 11.9 % (2.0-9.0); NEUTROPHILS # (AUTO) 7.9 K/uL (1.8-7.7); PLATELET COUNT (AUTO) 436 K/uL (150-450); RED BLOOD CELL COUNT(AUTO) 3.65 MIL/uL (4.50-5.90); RED CELL DISTRIBUTION WIDTH 15.4 % (11.5-14.5)
[2019-02-09 06:41] LABS: CALCIUM, TOTAL 8.3 mg/dL (8.8-10.5); CREATININE 1.43 mg/dL (0.60-1.30); POTASSIUM 3.9 mmol/L (3.5-5.1); VANCOMYCIN,RANDOM 15.8 mcg/mL (25.0-50.0)
[2019-02-09] MEDS: VANCOMYCIN HCL 1.25 GM in DEXTROSE 5%-WATER 250 ML IV SCH (08:23)
[2019-02-09] MEDS: ASPIRIN 81 MG EC TABLET PO SCH (08:27)
[2019-02-09] MEDS: CLOPIDOGREL BISULFATE 75 MG TABLET PO SCH (08:27)
[2019-02-09] MEDS: HEPARIN SODIUM,PORCINE 5,000 UNITS/ML VIAL SQ SCH ×2 (08:27→21:16)
[2019-02-09] MEDS: PANTOPRAZOLE SODIUM 40 MG DR TABLET PO SCH (08:28)
[2019-02-09 12:00] VITALS: BP 99/60
[2019-02-09 12:48] LABS: LEGIONELLA PNEUMO AG URINE Negative (Negative); ORGANISM ID Not indicated.; S PNEUMO SOURCE Urine; STREP PNEUMONIAE AG URINE Negative (Negative); STREP.PNEUMO BODY FLUID CULT. Not Indicated
[2019-02-09 16:09] VITALS: BP 100/58
[2019-02-09 16:22] VITALS: BP 91/53
[2019-02-09] MEDS: CEFEPIME HCL 2 GM in DEXTROSE 5%-WATER 50 ML IV SCH (17:48)
[2019-02-09 23:53] VITALS: BP 108/60
[2019-02-10 04:23] VITALS: BP 100/54
[2019-02-10] MEDS: LEVOTHYROXINE SODIUM 25 MCG TABLET PO SCH (06:26)
[2019-02-10 07:46] LABS: CALCIUM, TOTAL 8.6 mg/dL (8.8-10.5); CREATININE 1.42 mg/dL (0.60-1.30); POTASSIUM 3.9 mmol/L (3.5-5.1)
[2019-02-10 07:50] LABS: BASOPHILS % (AUTO) 0.9 % (0.0-2.0); EOSINOPHILS % (AUTO) 5.9 % (1.0-6.0); HEMATOCRIT 33.5 % (41-53); HEMOGLOBIN 11.5 g/dL (13.5-17.5); LYMPHOCYTES # (AUTO) 1.6 K/uL (1.0-4.8); LYMPHOCYTES % (AUTO) 12.8 % (22.0-44.0); MEAN CORPUSCULAR HEMOGLOBIN 31.6 pg (26.0-34.0); MEAN CORPUSCULAR HGB CONC 34.3 G/dL (31.0-37.0); MEAN CORPUSCULAR VOLUME 92 fL (80-100); MONOCYTES # (AUTO) 1.3 K/uL (0.1-1.0); MONOCYTES % (AUTO) 10.1 % (2.0-9.0); NEUTROPHILS # (AUTO) 8.7 K/uL (1.8-7.7); NEUTROPHILS % (AUTO) 70.3 % (40.0-70.0); PLATELET COUNT (AUTO) 426 K/uL (150-450); RED BLOOD CELL COUNT(AUTO) 3.64 MIL/uL (4.50-5.90); RED CELL DISTRIBUTION WIDTH 15.9 % (11.5-14.5)
[2019-02-10] MEDS: VANCOMYCIN HCL 1.25 GM in DEXTROSE 5%-WATER 250 ML IV SCH (08:41)
[2019-02-10] MEDS: CLOPIDOGREL BISULFATE 75 MG TABLET PO SCH (08:41)
[2019-02-10] MEDS: HEPARIN SODIUM,PORCINE 5,000 UNITS/ML VIAL SQ SCH ×2 (08:41→21:19)
[2019-02-10] MEDS: ASPIRIN 81 MG EC TABLET PO SCH (08:41)
[2019-02-10] MEDS: PANTOPRAZOLE SODIUM 40 MG DR TABLET PO SCH (08:41)
[2019-02-10 13:16] VITALS: BP 92/54
[2019-02-10 15:36] VITALS: BP 94/60
[2019-02-10] MEDS: CEFEPIME HCL 2 GM in DEXTROSE 5%-WATER 50 ML IV SCH (18:16)
[2019-02-10 20:13] VITALS: BP 94/58
[2019-02-11 00:43] VITALS: BP 92/58
[2019-02-11 04:16] VITALS: BP 96/55
[2019-02-11] MEDS: LEVOTHYROXINE SODIUM 25 MCG TABLET PO SCH (06:22)
[2019-02-11 06:43] LABS: BASOPHILS % (AUTO) 0.7 % (0.0-2.0); EOSINOPHILS % (AUTO) 5.1 % (1.0-6.0); HEMATOCRIT 33.7 % (41-53); HEMOGLOBIN 11.6 g/dL (13.5-17.5); LYMPHOCYTES # (AUTO) 1.6 K/uL (1.0-4.8); LYMPHOCYTES % (AUTO) 11.4 % (22.0-44.0); MEAN CORPUSCULAR HEMOGLOBIN 31.7 pg (26.0-34.0); MEAN CORPUSCULAR HGB CONC 34.5 G/dL (31.0-37.0); MEAN CORPUSCULAR VOLUME 92 fL (80-100); MONOCYTES # (AUTO) 1.3 K/uL (0.1-1.0); NEUTROPHILS # (AUTO) 10.4 K/uL (1.8-7.7); NEUTROPHILS % (AUTO) 73.8 % (40.0-70.0); PLATELET COUNT (AUTO) 419 K/uL (150-450); RED BLOOD CELL COUNT(AUTO) 3.67 MIL/uL (4.50-5.90); RED CELL DISTRIBUTION WIDTH 15.6 % (11.5-14.5)
[2019-02-11 06:52] LABS: CALCIUM, TOTAL 8.7 mg/dL (8.8-10.5); CREATININE 1.46 mg/dL (0.60-1.30); POTASSIUM 3.9 mmol/L (3.5-5.1)
[2019-02-11 08:09] VITALS: BP 104/53
[2019-02-11] MEDS: VANCOMYCIN HCL 1.25 GM in DEXTROSE 5%-WATER 250 ML IV SCH (08:22)
[2019-02-11] MEDS: CLOPIDOGREL BISULFATE 75 MG TABLET PO SCH (08:23)
[2019-02-11] MEDS: PANTOPRAZOLE SODIUM 40 MG DR TABLET PO SCH (08:23)
[2019-02-11] MEDS: ASPIRIN 81 MG EC TABLET PO SCH (08:23)
[2019-02-11] MEDS: HEPARIN SODIUM,PORCINE 5,000 UNITS/ML VIAL SQ SCH ×2 (08:23→20:42)
[2019-02-11] MEDS ORDERED: SODIUM CHLORIDE 0.9% 100 ML ONE (08:43)
[2019-02-11 11:36] VITALS: BP 92/54
[2019-02-11 15:51] VITALS: BP 92/52
[2019-02-11] MEDS: CEFEPIME HCL 2 GM in DEXTROSE 5%-WATER 50 ML IV SCH (17:36)
[2019-02-11 20:21] VITALS: BP 94/64
[2019-02-12 00:07] VITALS: BP 91/56
[2019-02-12 04:55] VITALS: BP 89/65
[2019-02-12 06:21] LABS: BASOPHILS % (AUTO) 0.7 % (0.0-2.0); EOSINOPHILS % (AUTO) 4.7 % (1.0-6.0); HEMATOCRIT 33.7 % (41-53); HEMOGLOBIN 11.8 g/dL (13.5-17.5); LYMPHOCYTES # (AUTO) 1.8 K/uL (1.0-4.8); LYMPHOCYTES % (AUTO) 11.4 % (22.0-44.0); MEAN CORPUSCULAR HEMOGLOBIN 32.2 pg (26.0-34.0); MEAN CORPUSCULAR VOLUME 92 fL (80-100); MONOCYTES # (AUTO) 1.6 K/uL (0.1-1.0); MONOCYTES % (AUTO) 9.8 % (2.0-9.0); NEUTROPHILS # (AUTO) 11.6 K/uL (1.8-7.7); NEUTROPHILS % (AUTO) 73.4 % (40.0-70.0); PLATELET COUNT (AUTO) 364 K/uL (150-450); RED BLOOD CELL COUNT(AUTO) 3.66 MIL/uL (4.50-5.90); RED CELL DISTRIBUTION WIDTH 15.5 % (11.5-14.5)
[2019-02-12 06:53] LABS: CALCIUM, TOTAL 8.9 mg/dL (8.8-10.5); CREATININE 1.51 mg/dL (0.60-1.30); POTASSIUM 4.1 mmol/L (3.5-5.1); VANCOMYCIN,RANDOM 28.4 mcg/mL (25.0-50.0)
[2019-02-12] MEDS: LEVOTHYROXINE SODIUM 25 MCG TABLET PO SCH (07:43)
[2019-02-12] MEDS ORDERED: VANCOMYCIN HCL 750 MG in DEXTROSE 5%-WATER 250 ML IV SCH (08:00)
[2019-02-12 08:11] VITALS: BP 86/49
[2019-02-12] MEDS: ASPIRIN 81 MG EC TABLET PO SCH (09:11)
[2019-02-12] MEDS: CLOPIDOGREL BISULFATE 75 MG TABLET PO SCH (09:11)
[2019-02-12] MEDS: PANTOPRAZOLE SODIUM 40 MG DR TABLET PO SCH (09:11)
[2019-02-12] MEDS: HEPARIN SODIUM,PORCINE 5,000 UNITS/ML VIAL SQ SCH ×2 (09:12→21:04)
[2019-02-12 11:34] VITALS: BP 84/58
[2019-02-12 15:36] VITALS: BP 84/51
[2019-02-12] MEDS: AMPICILLIN SODIUM/SULBACTAM NA 3 GM in SODIUM CHLORIDE 0.9% 100 ML IV SCH (18:22)
[2019-02-12 20:18] VITALS: BP 98/56
[2019-02-13] VITALS (16 sets, daily range): BP systolic 83–113; BP diastolic 46–76
[2019-02-13] MEDS: AMPICILLIN SODIUM/SULBACTAM NA 3 GM in SODIUM CHLORIDE 0.9% 100 ML IV SCH ×4 (01:10→17:33)
[2019-02-13] MEDS: LEVOTHYROXINE SODIUM 25 MCG TABLET PO SCH (06:00)
[2019-02-13] MEDS: HEPARIN SODIUM,PORCINE 5,000 UNITS/ML VIAL SQ SCH ×2 (07:37→21:20)
[2019-02-13] MEDS: PANTOPRAZOLE SODIUM 40 MG DR TABLET PO SCH (07:50)
[2019-02-13] MEDS ORDERED: SODIUM CHLORIDE 0.9% 1,000 ML IV ONE (17:45)
[2019-02-13 20:26] LABS: GLUCOMETER DEV NAME(LOC) 5S.1; GLUCOSE,POINT OF CARE 117 MG/DL (70-110)
[2019-02-13] MEDS: MEGESTROL ACETATE 400 MG/10 ML SUSPENSION UDCUP PO SCH (21:21)
[2019-02-13] MEDS: ACETAMINOPHEN 325 MG TABLET PO PRN (21:22)
[2019-02-14] MEDS: AMPICILLIN SODIUM/SULBACTAM NA 3 GM in SODIUM CHLORIDE 0.9% 100 ML IV SCH ×4 (00:58→18:52)
[2019-02-14 05:13] VITALS: BP 101/59
[2019-02-14] MEDS: LEVOTHYROXINE SODIUM 25 MCG TABLET PO SCH (06:01)
[2019-02-14] MEDS: ACETAMINOPHEN 325 MG TABLET PO PRN (06:02)
[2019-02-14 06:50] LABS: BASOPHILS % (AUTO) 0.4 % (0.0-2.0); EOSINOPHILS % (AUTO) 2.3 % (1.0-6.0); HEMATOCRIT 34.3 % (41-53); HEMOGLOBIN 11.7 g/dL (13.5-17.5); LYMPHOCYTES # (AUTO) 0.8 K/uL (1.0-4.8); LYMPHOCYTES % (AUTO) 5.1 % (22.0-44.0); MEAN CORPUSCULAR HEMOGLOBIN 31.6 pg (26.0-34.0); MEAN CORPUSCULAR HGB CONC 34.2 G/dL (31.0-37.0); MEAN CORPUSCULAR VOLUME 92 fL (80-100); MONOCYTES # (AUTO) 0.5 K/uL (0.1-1.0); MONOCYTES % (AUTO) 3.6 % (2.0-9.0); NEUTROPHILS # (AUTO) 13.6 K/uL (1.8-7.7); PLATELET COUNT (AUTO) 260 K/uL (150-450); RED BLOOD CELL COUNT(AUTO) 3.72 MIL/uL (4.50-5.90); RED CELL DISTRIBUTION WIDTH 15.9 % (11.5-14.5)
[2019-02-14 07:11] LABS: ALBUMIN 1.6 g/dL (3.4-5.0); BILIRUBIN,TOTAL 0.4 mg/dL (0.1-1.0); CALCIUM, TOTAL 8.6 mg/dL (8.8-10.5); CREATININE 1.92 mg/dL (0.60-1.30); POTASSIUM 3.8 mmol/L (3.5-5.1); TOTAL PROTEIN, SERUM 6.3 g/dL (6.4-8.2)
[2019-02-14 07:17] LABS: NEUTROPHILS % (AUTO) 88.6 % (40.0-70.0)
[2019-02-14 07:48] VITALS: BP 103/53
[2019-02-14] MEDS: HEPARIN SODIUM,PORCINE 5,000 UNITS/ML VIAL SQ SCH ×2 (09:28→21:10)
[2019-02-14] MEDS: MEGESTROL ACETATE 400 MG/10 ML SUSPENSION UDCUP PO SCH ×2 (09:28→21:10)
[2019-02-14] MEDS: PANTOPRAZOLE SODIUM 40 MG DR TABLET PO SCH (09:28)
[2019-02-14 11:51] VITALS: BP 91/53
[2019-02-14 15:39] VITALS: BP 100/50
[2019-02-14] MEDS ORDERED: DIGOXIN 250 MCG/ML 2 ML AMP IVP ONE ×2 (16:00→20:00)
[2019-02-14 20:21] VITALS: BP 104/56
[2019-02-14] MEDS: METOPROLOL TARTRATE 25 MG TABLET PO SCH ×2 (21:00→23:00)
[2019-02-14] MEDS ORDERED: AMIODARONE HCL 360 MG in DEXTROSE 5%-WATER 242.8 ML IV ONE (22:15)
[2019-02-14 23:30] VITALS: BP 88/58
[2019-02-15] VITALS (14 sets, daily range): BP systolic 92–117; BP diastolic 53–80
[2019-02-15] MEDS: AMPICILLIN SODIUM/SULBACTAM NA 3 GM in SODIUM CHLORIDE 0.9% 100 ML IV SCH ×5 (00:21→23:48)
[2019-02-15] MEDS: ACETAMINOPHEN 325 MG TABLET PO PRN (01:03)
[2019-02-15] MEDS ORDERED: AMIODARONE HCL 540 MG in DEXTROSE 5%-WATER 239.2 ML IV ONE (04:15)
[2019-02-15 05:19] LABS: BASOPHILS % (AUTO) 0.6 % (0.0-2.0); EOSINOPHILS % (AUTO) 4.4 % (1.0-6.0); HEMATOCRIT 32.1 % (41-53); HEMOGLOBIN 10.9 g/dL (13.5-17.5); LYMPHOCYTES # (AUTO) 1.3 K/uL (1.0-4.8); LYMPHOCYTES % (AUTO) 7.9 % (22.0-44.0); MEAN CORPUSCULAR HEMOGLOBIN 31.4 pg (26.0-34.0); MEAN CORPUSCULAR HGB CONC 33.9 G/dL (31.0-37.0); MEAN CORPUSCULAR VOLUME 93 fL (80-100); MONOCYTES # (AUTO) 0.8 K/uL (0.1-1.0); MONOCYTES % (AUTO) 5.4 % (2.0-9.0); NEUTROPHILS # (AUTO) 12.9 K/uL (1.8-7.7); NEUTROPHILS % (AUTO) 81.7 % (40.0-70.0); PLATELET COUNT (AUTO) 258 K/uL (150-450); RED BLOOD CELL COUNT(AUTO) 3.47 MIL/uL (4.50-5.90); RED CELL DISTRIBUTION WIDTH 15.7 % (11.5-14.5)
[2019-02-15] MEDS: LEVOTHYROXINE SODIUM 75 MCG TABLET PO SCH ×2 (05:31→09:28)
[2019-02-15 05:35] LABS: ALBUMIN 1.5 g/dL (3.4-5.0); BILIRUBIN,TOTAL 0.2 mg/dL (0.1-1.0); CALCIUM, TOTAL 8.7 mg/dL (8.8-10.5); CREATININE 1.75 mg/dL (0.60-1.30); TOTAL PROTEIN, SERUM 5.9 g/dL (6.4-8.2)
[2019-02-15] MEDS: MEGESTROL ACETATE 400 MG/10 ML SUSPENSION UDCUP PO SCH ×2 (09:00→20:56)
[2019-02-15] MEDS: METOPROLOL TARTRATE 25 MG TABLET PO SCH ×2 (09:28→20:56)
[2019-02-15] MEDS: HEPARIN SODIUM,PORCINE 5,000 UNITS/ML VIAL SQ SCH ×2 (09:28→20:56)
[2019-02-15] MEDS: PANTOPRAZOLE SODIUM 40 MG DR TABLET PO SCH (09:28)
[2019-02-15 16:33] LABS: DIGOXIN 1.04 ng/mL (0.90-2.00); THYROID STIMULATING HORMONE 20.65 uIU/mL (0.36-3.74)
[2019-02-15] MEDS: DIGOXIN 125 MCG TABLET PO SCH (18:18)
[2019-02-15] MEDS ORDERED: AMIODARONE HCL 50 MG/ML 3 ML VIAL IVP ONE (20:30)
[2019-02-15] MEDS ORDERED: AMIODARONE HCL IV SCH ×3 (21:00→21:08)
[2019-02-15] MEDS ORDERED: WATER IV SCH ×3 (21:00→21:08)
[2019-02-15] MEDS ORDERED: DEXTROSE 5% IV SCH ×3 (21:00→21:08)
[2019-02-15 21:45] LABS: APPEARANCE,URINE CLEAR (CLEAR); BILIRUBIN,URINE NEGATIVE (NEGATIVE); GLUCOSE, URINE (UA) NEGATIVE (NEGATIVE); KETONES,URINE NEGATIVE (NEGATIVE); LEUKOCYTE ESTERASE ,URINE NEGATIVE (NEGATIVE); NITRATE,URINE NEGATIVE (NEGATIVE); OCCULT BLOOD,URINE NEGATIVE (NEGATIVE); PH,URINE 6.5 (5.0-8.0); PROTEIN,URINE SEE CONFIRM (NEGATIVE); UROBILINOGEN,URINE 0.2 mg/dL (<=1.0)
[2019-02-15 22:24] LABS: BACTERIA,URINE None Seen /HPF (None Seen); RBC,URINE 0-2 /HPF (0-2); SULFOSALICYLIC ACID,URINE 2+ (Negative); WBC,URINE 0-2 /HPF (0-5)
[2019-02-15] MEDS ORDERED: SODIUM CHLORIDE 0.9% 250 ML IV ONE (23:38)
[2019-02-16] VITALS: BP 104/55
[2019-02-16 04:00] VITALS: BP 92/62
[2019-02-16 05:11] LABS: BASOPHILS % (AUTO) 0.7 % (0.0-2.0); EOSINOPHILS % (AUTO) 4.7 % (1.0-6.0); HEMATOCRIT 31.4 % (41-53); HEMOGLOBIN 10.7 g/dL (13.5-17.5); LYMPHOCYTES # (AUTO) 1.4 K/uL (1.0-4.8); LYMPHOCYTES % (AUTO) 8.4 % (22.0-44.0); MEAN CORPUSCULAR HEMOGLOBIN 31.4 pg (26.0-34.0); MEAN CORPUSCULAR HGB CONC 34.2 G/dL (31.0-37.0); MEAN CORPUSCULAR VOLUME 92 fL (80-100); MONOCYTES # (AUTO) 1.1 K/uL (0.1-1.0); MONOCYTES % (AUTO) 6.6 % (2.0-9.0); NEUTROPHILS % (AUTO) 79.6 % (40.0-70.0); PLATELET COUNT (AUTO) 281 K/uL (150-450); RED BLOOD CELL COUNT(AUTO) 3.42 MIL/uL (4.50-5.90); RED CELL DISTRIBUTION WIDTH 15.7 % (11.5-14.5)
[2019-02-16 05:20] LABS: CALCIUM, TOTAL 8.6 mg/dL (8.8-10.5); CREATININE 1.75 mg/dL (0.60-1.30); POTASSIUM 4.1 mmol/L (3.5-5.1)
[2019-02-16 05:50] LABS: THYROID STIMULATING HORMONE 19.91 uIU/mL (0.36-3.74)
[2019-02-16] MEDS: AMPICILLIN SODIUM/SULBACTAM NA 3 GM in SODIUM CHLORIDE 0.9% 100 ML IV SCH ×4 (05:52→23:22)
[2019-02-16 08:00] VITALS: BP 105/57
[2019-02-16] MEDS: DIGOXIN 125 MCG TABLET PO SCH (08:55)
[2019-02-16] MEDS: HEPARIN SODIUM,PORCINE 5,000 UNITS/ML VIAL SQ SCH ×2 (08:55→20:36)
[2019-02-16] MEDS: METOPROLOL TARTRATE 25 MG TABLET PO SCH ×2 (08:55→20:36)
[2019-02-16] MEDS: MEGESTROL ACETATE 400 MG/10 ML SUSPENSION UDCUP PO SCH ×2 (08:56→20:36)
[2019-02-16] MEDS: PANTOPRAZOLE SODIUM 40 MG DR TABLET PO SCH (08:56)
[2019-02-16 12:00] VITALS: BP 101/51
[2019-02-16 16:00] VITALS: BP 102/56
[2019-02-16 20:00] VITALS: BP 91/51
[2019-02-17] VITALS: BP 101/52
[2019-02-17 04:00] VITALS: BP 92/66
[2019-02-17] MEDS: AMPICILLIN SODIUM/SULBACTAM NA 3 GM in SODIUM CHLORIDE 0.9% 100 ML IV SCH ×4 (05:07→23:36)
[2019-02-17 05:10] LABS: BASOPHILS % (AUTO) 0.4 % (0.0-2.0); EOSINOPHILS % (AUTO) 4.8 % (1.0-6.0); HEMATOCRIT 33.7 % (41-53); HEMOGLOBIN 11.4 g/dL (13.5-17.5); LYMPHOCYTES # (AUTO) 1.9 K/uL (1.0-4.8); LYMPHOCYTES % (AUTO) 11.5 % (22.0-44.0); MEAN CORPUSCULAR HEMOGLOBIN 31.4 pg (26.0-34.0); MEAN CORPUSCULAR HGB CONC 33.8 G/dL (31.0-37.0); MEAN CORPUSCULAR VOLUME 93 fL (80-100); MONOCYTES # (AUTO) 1.4 K/uL (0.1-1.0); MONOCYTES % (AUTO) 8.9 % (2.0-9.0); NEUTROPHILS # (AUTO) 12.1 K/uL (1.8-7.7); NEUTROPHILS % (AUTO) 74.4 % (40.0-70.0); PLATELET COUNT (AUTO) 309 K/uL (150-450); RED BLOOD CELL COUNT(AUTO) 3.63 MIL/uL (4.50-5.90); RED CELL DISTRIBUTION WIDTH 15.6 % (11.5-14.5)
[2019-02-17 05:20] LABS: INR 1.1 (0.9-1.1); PROTHROMBIN TIME 11.2 SEC (9.4-11.6)
[2019-02-17] MEDS: LEVOTHYROXINE SODIUM 75 MCG TABLET PO SCH (05:35)
[2019-02-17 08:00] VITALS: BP 114/54
[2019-02-17] MEDS ORDERED: LIDOCAINE/PF 1% 5 ML VIAL ONE (08:45)
[2019-02-17] MEDS ORDERED: MIDAZOLAM HCL 2 MG/2 ML VIAL ONE (08:55)
[2019-02-17] MEDS ORDERED: FentaNYL CITRATE-PF 100 MCG/2 ML VIAL ONE (08:55)
[2019-02-17] MEDS ORDERED: NALOXONE HCL 0.4 MG/ML VIAL ONE (08:56)
[2019-02-17] MEDS: PANTOPRAZOLE SODIUM 40 MG DR TABLET PO SCH (09:00)
[2019-02-17] MEDS: MEGESTROL ACETATE 400 MG/10 ML SUSPENSION UDCUP PO SCH ×2 (09:00→20:33)
[2019-02-17] MEDS: METOPROLOL TARTRATE 25 MG TABLET PO SCH ×2 (09:00→20:25)
[2019-02-17] MEDS: HEPARIN SODIUM,PORCINE 5,000 UNITS/ML VIAL SQ SCH ×2 (09:00→20:33)
[2019-02-17] MEDS ORDERED: MIDAZOLAM HCL 2 MG/2 ML VIAL IVP ONE (10:15)
[2019-02-17 12:00] VITALS: BP 93/44
[2019-02-17] MEDS ORDERED: SODIUM CHLORIDE 0.9% 250 ML IV ONE (12:00)
[2019-02-17 16:00] VITALS: BP 94/50
[2019-02-17] MEDS: DIGOXIN 125 MCG TABLET PO SCH (18:25)
[2019-02-17 20:00] VITALS: BP 97/50
[2019-02-18] VITALS (8 sets, daily range): BP systolic 91–113; BP diastolic 47–61
[2019-02-18] MEDS ORDERED: SODIUM CHLORIDE 0.9% 1,000 ML ONE (06:46)
[2019-02-18 07:00] LABS: BASOPHILS % (AUTO) 0.5 % (0.0-2.0); EOSINOPHILS % (AUTO) 4.6 % (1.0-6.0); HEMATOCRIT 32.3 % (41-53); HEMOGLOBIN 10.9 g/dL (13.5-17.5); LYMPHOCYTES # (AUTO) 1.2 K/uL (1.0-4.8); LYMPHOCYTES % (AUTO) 7.1 % (22.0-44.0); MEAN CORPUSCULAR HEMOGLOBIN 31.4 pg (26.0-34.0); MEAN CORPUSCULAR HGB CONC 33.9 G/dL (31.0-37.0); MEAN CORPUSCULAR VOLUME 93 fL (80-100); MONOCYTES # (AUTO) 1.1 K/uL (0.1-1.0); MONOCYTES % (AUTO) 6.9 % (2.0-9.0); NEUTROPHILS # (AUTO) 13.2 K/uL (1.8-7.7); NEUTROPHILS % (AUTO) 80.9 % (40.0-70.0); PLATELET COUNT (AUTO) 321 K/uL (150-450); RED BLOOD CELL COUNT(AUTO) 3.49 MIL/uL (4.50-5.90); RED CELL DISTRIBUTION WIDTH 15.9 % (11.5-14.5)
[2019-02-18] MEDS: AMPICILLIN SODIUM/SULBACTAM NA 3 GM in SODIUM CHLORIDE 0.9% 100 ML IV SCH ×4 (07:03→23:27)
[2019-02-18] MEDS: LEVOTHYROXINE SODIUM 75 MCG TABLET PO SCH (07:03)
[2019-02-18 07:10] LABS: INR 1.1 (0.9-1.1); PROTHROMBIN TIME 11.2 SEC (9.4-11.6)
[2019-02-18 07:27] LABS: ALBUMIN 1.4 g/dL (3.4-5.0); BILIRUBIN,TOTAL 0.3 mg/dL (0.1-1.0); CREATININE 1.66 mg/dL (0.60-1.30); MAGNESIUM 1.8 mg/dL (1.80-2.40); POTASSIUM 4.2 mmol/L (3.5-5.1)
[2019-02-18] MEDS: METOPROLOL TARTRATE 25 MG TABLET PO SCH ×2 (09:39→21:00)
[2019-02-18] MEDS: DIGOXIN 125 MCG TABLET PO SCH (09:39)
[2019-02-18] MEDS: PANTOPRAZOLE SODIUM 40 MG DR TABLET PO SCH (09:39)
[2019-02-18] MEDS: MEGESTROL ACETATE 400 MG/10 ML SUSPENSION UDCUP PO SCH ×2 (09:40→21:54)
[2019-02-18] MEDS: HEPARIN SODIUM,PORCINE 5,000 UNITS/ML VIAL SQ SCH ×2 (09:40→21:52)
[2019-02-19] VITALS (7 sets, daily range): BP systolic 99–128; BP diastolic 54–63
[2019-02-19 00:53] LABS: GLUCOMETER DEV NAME(LOC) 5N.1; GLUCOSE,POINT OF CARE 77 MG/DL (70-110)
[2019-02-19 04:33] LABS: GLUCOMETER DEV NAME(LOC) 5N.2; GLUCOSE,POINT OF CARE 100 MG/DL (70-110)
[2019-02-19 04:33] LABS: GLUCOMETER DEV NAME(LOC) 5N.2; GLUCOSE,POINT OF CARE 106 MG/DL (70-110)
[2019-02-19] MEDS: LEVOTHYROXINE SODIUM 75 MCG TABLET PO SCH (05:37)
[2019-02-19] MEDS: AMPICILLIN SODIUM/SULBACTAM NA 3 GM in SODIUM CHLORIDE 0.9% 100 ML IV SCH ×2 (05:37→11:45)
[2019-02-19 06:56] LABS: GLUCOMETER DEV NAME(LOC) 5N.2; GLUCOSE,POINT OF CARE 100 MG/DL (70-110)
[2019-02-19] MEDS: MEGESTROL ACETATE 400 MG/10 ML SUSPENSION UDCUP PO SCH ×2 (08:11→21:31)
[2019-02-19] MEDS: PANTOPRAZOLE SODIUM 40 MG DR TABLET PO SCH (08:11)
[2019-02-19] MEDS: DIGOXIN 125 MCG TABLET PO SCH (08:12)
[2019-02-19] MEDS: HEPARIN SODIUM,PORCINE 5,000 UNITS/ML VIAL SQ SCH ×2 (08:12→21:30)
[2019-02-19] MEDS: METOPROLOL TARTRATE 25 MG TABLET PO SCH ×2 (08:12→21:00)
[2019-02-19] MEDS: ISONIAZID 300 MG TABLET PO SCH (16:16)
[2019-02-19] MEDS: PYRAZINAMIDE 500 MG TABLET PO SCH (16:16)
[2019-02-19] MEDS: RIFAMPIN 300 MG CAPSULE PO SCH (16:17)
[2019-02-19] MEDS: PYRIDOXINE HCL 50 MG TABLET PO SCH (16:17)
[2019-02-19] MEDS: ETHAMBUTOL HCL 400 MG TABLET PO SCH (16:17)
[2019-02-19] MEDS: MELATONIN 3 MG TABLET PO SCH (21:31)
[2019-02-20 00:08] VITALS: BP 102/48
[2019-02-20 04:52] VITALS: BP 107/60
[2019-02-20] MEDS: LEVOTHYROXINE SODIUM 75 MCG TABLET PO SCH (05:32)
[2019-02-20 07:14] LABS: BASOPHILS % (AUTO) 0.9 % (0.0-2.0); EOSINOPHILS % (AUTO) 3.5 % (1.0-6.0); HEMATOCRIT 35.5 % (41-53); HEMOGLOBIN 11.9 g/dL (13.5-17.5); LYMPHOCYTES # (AUTO) 1.5 K/uL (1.0-4.8); MEAN CORPUSCULAR HEMOGLOBIN 31.2 pg (26.0-34.0); MEAN CORPUSCULAR HGB CONC 33.5 G/dL (31.0-37.0); MEAN CORPUSCULAR VOLUME 93 fL (80-100); MONOCYTES % (AUTO) 5.5 % (2.0-9.0); NEUTROPHILS # (AUTO) 14.9 K/uL (1.8-7.7); NEUTROPHILS % (AUTO) 82.1 % (40.0-70.0); PLATELET COUNT (AUTO) 372 K/uL (150-450); RED BLOOD CELL COUNT(AUTO) 3.81 MIL/uL (4.50-5.90); RED CELL DISTRIBUTION WIDTH 15.9 % (11.5-14.5)
[2019-02-20 07:55] VITALS: BP 146/79
[2019-02-20 07:58] LABS: ALBUMIN 1.6 g/dL (3.4-5.0); CALCIUM, TOTAL 8.3 mg/dL (8.8-10.5); CREATININE 1.78 mg/dL (0.60-1.30); DIGOXIN 1.93 ng/mL (0.90-2.00); MAGNESIUM 1.9 mg/dL (1.80-2.40); POTASSIUM 4.6 mmol/L (3.5-5.1); TOTAL PROTEIN, SERUM 5.4 g/dL (6.4-8.2)
[2019-02-20] MEDS: RIFAMPIN 300 MG CAPSULE PO SCH (08:46)
[2019-02-20] MEDS: PANTOPRAZOLE SODIUM 40 MG DR TABLET PO SCH (08:46)
[2019-02-20] MEDS: METOPROLOL TARTRATE 25 MG TABLET PO SCH ×2 (08:47→21:00)
[2019-02-20] MEDS: ISONIAZID 300 MG TABLET PO SCH (08:47)
[2019-02-20] MEDS: PYRIDOXINE HCL 50 MG TABLET PO SCH (08:47)
[2019-02-20] MEDS: DIGOXIN 125 MCG TABLET PO SCH (08:47)
[2019-02-20] MEDS: MEGESTROL ACETATE 400 MG/10 ML SUSPENSION UDCUP PO SCH ×2 (08:47→21:04)
[2019-02-20] MEDS: HEPARIN SODIUM,PORCINE 5,000 UNITS/ML VIAL SQ SCH ×2 (08:48→21:05)
[2019-02-20 11:54] VITALS: BP 92/57
[2019-02-20 16:30] VITALS: BP 87/51
[2019-02-20 19:52] VITALS: BP 100/53
[2019-02-20] MEDS: MELATONIN 3 MG TABLET PO SCH (21:04)
[2019-02-21 01:00] VITALS: BP 95/57
[2019-02-21 04:00] VITALS: BP 102/54
[2019-02-21 06:53] LABS: BASOPHILS % (AUTO) 0.8 % (0.0-2.0); EOSINOPHILS % (AUTO) 3.3 % (1.0-6.0); HEMATOCRIT 32.2 % (41-53); HEMOGLOBIN 10.9 g/dL (13.5-17.5); LYMPHOCYTES # (AUTO) 1.9 K/uL (1.0-4.8); LYMPHOCYTES % (AUTO) 8.4 % (22.0-44.0); MEAN CORPUSCULAR HEMOGLOBIN 31.5 pg (26.0-34.0); MEAN CORPUSCULAR HGB CONC 33.9 G/dL (31.0-37.0); MEAN CORPUSCULAR VOLUME 93 fL (80-100); MONOCYTES # (AUTO) 1.4 K/uL (0.1-1.0); MONOCYTES % (AUTO) 6.4 % (2.0-9.0); NEUTROPHILS % (AUTO) 81.1 % (40.0-70.0); PLATELET COUNT (AUTO) 436 K/uL (150-450); RED BLOOD CELL COUNT(AUTO) 3.47 MIL/uL (4.50-5.90); RED CELL DISTRIBUTION WIDTH 16.2 % (11.5-14.5)
[2019-02-21] MEDS: LEVOTHYROXINE SODIUM 75 MCG TABLET PO SCH (07:01)
[2019-02-21 07:08] LABS: ALBUMIN 1.6 g/dL (3.4-5.0); BILIRUBIN,TOTAL 0.9 mg/dL (0.1-1.0); CALCIUM, TOTAL 8.6 mg/dL (8.8-10.5); CREATININE 1.98 mg/dL (0.60-1.30); MAGNESIUM 2.2 mg/dL (1.80-2.40); PHOSPHORUS 4.4 mg/dL (2.5-4.9); POTASSIUM 3.9 mmol/L (3.5-5.1); TOTAL PROTEIN, SERUM 6.2 g/dL (6.4-8.2)
[2019-02-21 07:51] VITALS: BP 111/59
[2019-02-21] MEDS: HEPARIN SODIUM,PORCINE 5,000 UNITS/ML VIAL SQ SCH ×2 (08:34→20:58)
[2019-02-21] MEDS: PYRAZINAMIDE 500 MG TABLET PO SCH (08:36)
[2019-02-21] MEDS: PYRIDOXINE HCL 50 MG TABLET PO SCH (08:36)
[2019-02-21] MEDS: PANTOPRAZOLE SODIUM 40 MG DR TABLET PO SCH (08:37)
[2019-02-21] MEDS: RIFAMPIN 300 MG CAPSULE PO SCH (08:38)
[2019-02-21] MEDS: ISONIAZID 300 MG TABLET PO SCH (08:38)
[2019-02-21] MEDS: ETHAMBUTOL HCL 400 MG TABLET PO SCH (08:39)
[2019-02-21] MEDS: METOPROLOL TARTRATE 25 MG TABLET PO SCH ×2 (08:39→20:54)
[2019-02-21] MEDS: MEGESTROL ACETATE 400 MG/10 ML SUSPENSION UDCUP PO SCH ×2 (08:42→20:58)
[2019-02-21] MEDS ORDERED: DIGOXIN 125 MCG TABLET PO SCH (09:00)
[2019-02-21 12:38] VITALS: BP 111/59
[2019-02-21 17:18] VITALS: BP 115/60
[2019-02-21 20:24] VITALS: BP 98/50
[2019-02-21] MEDS: MELATONIN 3 MG TABLET PO SCH (20:58)
[2019-02-22] VITALS (8 sets, daily range): BP systolic 103–131; BP diastolic 50–71
[2019-02-22] MEDS: LEVOTHYROXINE SODIUM 75 MCG TABLET PO SCH (06:18)
[2019-02-22] MEDS: ACETAMINOPHEN 325 MG TABLET PO PRN ×2 (06:19→13:01)
[2019-02-22 06:25] LABS: BASOPHILS % (AUTO) 0.5 % (0.0-2.0); HEMATOCRIT 35.1 % (41-53); HEMOGLOBIN 11.5 g/dL (13.5-17.5); LYMPHOCYTES # (AUTO) 1.5 K/uL (1.0-4.8); MEAN CORPUSCULAR HEMOGLOBIN 30.7 pg (26.0-34.0); MEAN CORPUSCULAR HGB CONC 32.9 G/dL (31.0-37.0); MEAN CORPUSCULAR VOLUME 93 fL (80-100); MONOCYTES # (AUTO) 1.6 K/uL (0.1-1.0); MONOCYTES % (AUTO) 7.1 % (2.0-9.0); NEUTROPHILS # (AUTO) 17.8 K/uL (1.8-7.7); NEUTROPHILS % (AUTO) 81.4 % (40.0-70.0); PLATELET COUNT (AUTO) 446 K/uL (150-450); RED BLOOD CELL COUNT(AUTO) 3.76 MIL/uL (4.50-5.90); RED CELL DISTRIBUTION WIDTH 16.6 % (11.5-14.5)
[2019-02-22 06:39] LABS: CALCIUM, TOTAL 8.5 mg/dL (8.8-10.5); CREATININE 2.04 mg/dL (0.60-1.30)
[2019-02-22] MEDS: PANTOPRAZOLE SODIUM 40 MG DR TABLET PO SCH (09:00)
[2019-02-22] MEDS ORDERED: DIGOXIN 125 MCG TABLET PO SCH (09:00)
[2019-02-22] MEDS: METOPROLOL TARTRATE 25 MG TABLET PO SCH ×3 (09:50→21:00)
[2019-02-22] MEDS: PYRIDOXINE HCL 50 MG TABLET PO SCH (09:52)
[2019-02-22] MEDS: ISONIAZID 300 MG TABLET PO SCH (09:52)
[2019-02-22] MEDS: HEPARIN SODIUM,PORCINE 5,000 UNITS/ML VIAL SQ SCH ×2 (09:53→21:28)
[2019-02-22] MEDS: MEGESTROL ACETATE 400 MG/10 ML SUSPENSION UDCUP PO SCH ×2 (09:53→21:29)
[2019-02-22] MEDS: RIFAMPIN 300 MG CAPSULE PO SCH (09:53)
[2019-02-22] MEDS: MELATONIN 3 MG TABLET PO SCH (21:28)
[2019-02-23 00:47] VITALS: BP 105/52
[2019-02-23 04:15] VITALS: BP 102/59
[2019-02-23] MEDS: LEVOTHYROXINE SODIUM 75 MCG TABLET PO SCH (06:05)
[2019-02-23 06:29] LABS: BASOPHILS % (AUTO) 0.7 % (0.0-2.0); EOSINOPHILS % (AUTO) 3.5 % (1.0-6.0); HEMATOCRIT 36.5 % (41-53); HEMOGLOBIN 11.9 g/dL (13.5-17.5); LYMPHOCYTES # (AUTO) 1.7 K/uL (1.0-4.8); LYMPHOCYTES % (AUTO) 7.5 % (22.0-44.0); MEAN CORPUSCULAR HEMOGLOBIN 30.6 pg (26.0-34.0); MEAN CORPUSCULAR HGB CONC 32.7 G/dL (31.0-37.0); MEAN CORPUSCULAR VOLUME 94 fL (80-100); MONOCYTES # (AUTO) 1.7 K/uL (0.1-1.0); MONOCYTES % (AUTO) 7.8 % (2.0-9.0); NEUTROPHILS # (AUTO) 17.9 K/uL (1.8-7.7); NEUTROPHILS % (AUTO) 80.5 % (40.0-70.0); PLATELET COUNT (AUTO) 426 K/uL (150-450); RED BLOOD CELL COUNT(AUTO) 3.89 MIL/uL (4.50-5.90); RED CELL DISTRIBUTION WIDTH 16.2 % (11.5-14.5)
[2019-02-23 06:39] LABS: CALCIUM, TOTAL 8.5 mg/dL (8.8-10.5); CREATININE 2.11 mg/dL (0.60-1.30); MAGNESIUM 2.2 mg/dL (1.80-2.40); POTASSIUM 4.1 mmol/L (3.5-5.1)
[2019-02-23 08:36] VITALS: BP 138/73
[2019-02-23] MEDS: ISONIAZID 300 MG TABLET PO SCH (08:46)
[2019-02-23] MEDS: RIFAMPIN 300 MG CAPSULE PO SCH (08:46)
[2019-02-23] MEDS: PANTOPRAZOLE SODIUM 40 MG DR TABLET PO SCH (08:46)
[2019-02-23] MEDS: PYRIDOXINE HCL 50 MG TABLET PO SCH (08:47)
[2019-02-23] MEDS: MEGESTROL ACETATE 400 MG/10 ML SUSPENSION UDCUP PO SCH (08:48)
[2019-02-23] MEDS: HEPARIN SODIUM,PORCINE 5,000 UNITS/ML VIAL SQ SCH (09:00)
[2019-02-23] MEDS ORDERED: METOPROLOL TARTRATE 25 MG TABLET PO SCH (09:00)
== END 2019-02-23 10:10 | disposition expired | DRG 871 ==
LOC: EMS 09:09 → AHU 17:53 → 5N 21:30 → ICU 02-14 23:00 → 5N 02-18 01:30
PROVIDERS: ADMIT Internal Medicine; ATTEND Internal Medicine
PROC: 4B02XSZ Measurement of Cardiac Pacemaker, External Approach (ICD-10-PCS; principal; 2019-02-11)
PROC: 0BBC3ZX Excision of Right Upper Lung Lobe, Percutaneous Approach, Diagnostic (ICD-10-PCS; 2019-02-17)
DX: A41.9 Sepsis, unspecified organism (principal); J18.9 Pneumonia, unspecified organism; E43 Unspecified severe protein-calorie malnutrition; N17.0 Acute kidney failure with tubular necrosis; I50.22 Chronic systolic (congestive) heart failure; I13.0 Hypertensive heart and chronic kidney disease with heart failure and stage 1 through stage 4 chronic kidney disease, or unspecified chronic kidney disease; I47.1 Supraventricular tachycardia; E87.1 Hypo-osmolality and hyponatremia; Z68.1 Body mass index [BMI] 19.9 or less, adult; E78.5 Hyperlipidemia, unspecified; I25.5 Ischemic cardiomyopathy; I25.10 Atherosclerotic heart disease of native coronary artery without angina pectoris; I48.0 Paroxysmal atrial fibrillation; N18.3 Chronic kidney disease, stage 3 (moderate); E03.9 Hypothyroidism, unspecified; E11.22 Type 2 diabetes mellitus with diabetic chronic kidney disease; E78.00 Pure hypercholesterolemia, unspecified; Z79.82 Long term (current) use of aspirin; Z79.899 Other long term (current) drug therapy; Z87.01 Personal history of pneumonia (recurrent); Z91.19 Patient's noncompliance with other medical treatment and regimen; Z95.5 Presence of coronary angioplasty implant and graft; Z95.810 Presence of automatic (implantable) cardiac defibrillator
CPT/HCPCS: 32405; 70450; 71250; 74018; 83605; 83735; 84100; 84145; 84439; 84443; 86480; 86635; 86738; 87015; 87040; 87070; 87081; 87101; 87149; 87176; 87205; 87206; 87389; 87449; 87556; 87804; 87899; 92526; 92610; 93005; 93306; 94640; 94799; 97116; 97530; G0378; J0282; J0295; J0692; J1160; J1644; J2001; J2250; J2310; J2543; J3010; J3370; J7030; J7050; J7060